=== PATIENT | female | born 1945 | race Caucasian/White ===

== ENCOUNTER 2025-07-01 10:18 | Emergency (ER) | payer MEDICARE ==
[~2025-07-01] VITALS: Ht 165.1 cm; Wt 57.0 kg
[2025-07-01 10:24] VITALS: TEMP 98.7
--- NOTE | 2025-07-01 10:55 | Physician Documentation ---
History of Present Illness ~ General Chief Complaint: See Chief Complaint Stated Complaint: ABNORMAL LABS Time Seen by MD: 10:54 Primary Medical Doctor: luis alberto Mode of Arrival: EMS History of Present Illness Initial Comments 80 Year old female brought to the emergency department per ambulance. Evidently, her intermediate, [facility] called for an ambulance because the patient was refusing to comply with her fluid restriction due to hyponatremia. On evaluation, the patient denies chills or fever, nausea, vomiting, chest pain or shortness of breath. She does note abdominal pain, but reports that this is chronic. She does also note that she is concerned she may have a urinary tract infection. Reviewed recent records from [facility], which accompany the patient. These show that she had a recent presentation to [facility] at which point she was admitted there on 06/08/2025 for rhabdomyolysis after being found on the floor. Evidently, discharged from [facility] to [facility]. Patient does also have history of recent cellulitis of the leg, acute kidney injury, alcohol dependence, atrial fib, TIFFANY, and cognitive impairment. Medication Reconciliation Allergies: Coded Allergies: Sulfa (Sulfonamide Antibiotics) (Verified Allergy, Severe, rash, 07/01/25) diazepam (Verified Allergy, Intermediate, hallucinations, 07/01/25) duloxetine (Verified Allergy, Intermediate, hallucinations, 07/01/25) midazolam (Verified Allergy, Intermediate, hallucinations, 07/01/25) oxycodone (Verified Allergy, Intermediate, hallucinations, 07/01/25) promethazine (Verified Allergy, Intermediate, hallucinations, 07/01/25) zolpidem (Verified Allergy, Intermediate, restless, 07/01/25) fluoxetine (Verified Allergy, Mild, restless, 07/01/25) Uncoded Allergies: METAL (Allergy, Intermediate, rash, 07/01/25) Review of Systems ROS As stated above in the HPI, otherwise all systems are reviewed and negative. Physical Exam Physical Exam Vital Signs: Temperature: 98.7, Source: Oral, Heart Rate: 77, Respiratory Rate: 15, BP: 126/62, Pulse Oximetry: 96, Weight: 57.000 Oxygen Flow Rate: 0 Physical Exam General: Alert, no apparent distress. Chronically ill appearing. HEENT: PERRL, EOMI, no injection, dry mucous membranes. Neck: Full range of motion. Respiratory: Lungs clear, no respiratory distress. Chest: No accessory muscle use. Cardiovascular: Regular rate and rhythm, no murmurs. Gastrointestinal: Soft, nontender, nondistended. Bowels sounds present. Extremities: Normal range of motion, no deformity. Neurologic: Oriented x4. Psychiatric: Normal mood and affect. Skin: No edema, no ecchymosis. Both legs wrapped in gauze and serous drainage noted on dressing. Progress Results/Orders Results/Orders Orders - RICHELLE LIRA NP Urinalysis, Cult If Indicated (07/01/25 10:54) Completed Orders - RICHELLE LIRA [employer] Renal Panel (07/01/25 10:54) Cbc/Diff (07/01/25 10:54) Vital Signs 07/01/25 07/01/25 10:24 10:40 Temp 98.7 Pulse 77 Resp 15 B/P (MAP) 126/62 Pulse Ox 96 O2 Flow Rate 0 Laboratory Tests Test 07/01/25 11:30 White Blood Count 8.8 Red Blood Count 3.64 L Hemoglobin 11.0 L Hematocrit 31.8 L Mean Corpuscular Volume 87.4 Mean Corpuscular Hemoglobin 30.2 Mean Corpuscular Hemoglobin Concent 34.5 Red Cell Distribution Width 13.6 Platelet Count 403 Mean Platelet Volume 6.9 L Neutrophils (%) (Auto) 71.2 Lymphocytes (%) (Auto) 15.5 L Monocytes (%) (Auto) 10.2 Eosinophils (%) (Auto) 2.0 Basophils (%) (Auto) 1.1 H Neutrophils # (Auto) 6.3 Lymphocytes # (Auto) 1.4 Monocytes # (Auto) 0.9 Eosinophils # (Auto) 0.2 Basophils # (Auto) 0.1 CBC Comment Sodium Level 127 L Potassium Level 3.7 Chloride Level 93 L Carbon Dioxide Level 28.0 Anion Gap 6 L Blood Urea Nitrogen 14 Creatinine 0.72 Estimated GFR/1.73 m2 78 BUN/Creatinine Ratio 19.4 Glucose Level 90 Calcium Level 8.2 L Phosphorus Level 3.4 Albumin 2.9 L Chemistry Comments Medical Decision Making Additional information obtaine: old records, other Findings [facility] records from 06/08/25 hospitalization reviewed. Paperwork from [facility] reviewed. Differential Diagnosis Labs returned showing sodium of 127 and evidence of mild anemia with a hemoglobin of 11.0. Discussed with the patient that has fluid restriction is necessary to improve her sodium. She should also follow up with her primary care provider or the provider at her facility and discuss next steps. Patient is insistent that she that she does not want to return to her facility and neither does she desire to be hospitalized. The patient was offered AMA papers but could not find a ride home. She ultimately agreed to return to her usual facility for ongoing care. Refused to provide UA or be catheterized. Departure Time of Disposition: 12:13 Disposition: HOME / SELF CARE / HOMELESS Impression: Primary Impression: Hyponatremia Condition: Stable Discharge Instructions: Hyponatremia Additional Instructions: You are encouraged to return to the facility where you are currently staying for ongoing care. You do have evidence of moderate hyponatremia with a value today of a sodium of 127. Fluid restriction does help raise your sodium levels. However, you are able to make your own decisions and stating that you choose not to practice fluid restriction. This is your right as you are able to make your own decisions. Referrals: NO PRIMARY CARE PROVIDER (PCP) Education Educated: Patient Educated regarding: diagnosis, treatment, prognosis, need for follow up Signature Scribe Signature: x Attestation: The note accurately reflects work and decisions made by me.Richelle Freire NP 07/01/25 11:17 RICHELLE LIRA NP Jul 01, 2025 10:54
[2025-07-01 11:43] LABS: MEAN PLATELET VOLUME 6.9 FL (7.4-10.4); RED CELL DISTRIBUTION WIDTH 13.6 % (11.5-14.5)
[2025-07-01 11:57] LABS: CREATININE 0.72 MG/DL (0.40-0.90); PHOSPHORUS 3.4 MG/DL (2.3-4.5); TOTAL CARBON DIOXIDE 28.0 MMOL/L (24-32); eCRCL 56 ML/MIN; eGFR 78 ML/MIN
[2025-07-01 13:09] VITALS: BP 119/80; PULSE 68; RESP 16; O2SAT 97
== END 2025-07-01 13:29 | disposition home or self-care (01) ==
LOC: ER 10:18
DX: E87.1 Hypo-osmolality and hyponatremia (principal); I48.91 Unspecified atrial fibrillation; F10.20 Alcohol dependence, uncomplicated; Z88.2 Allergy status to sulfonamides; Z88.5 Allergy status to narcotic agent; Y90.9 Presence of alcohol in blood, level not specified
CPT/HCPCS: 36415; 80069; 85025; 99284